=== PATIENT | male | born 1995 | race Caucasian/White ===

== ENCOUNTER 2023-10-26 19:07 | Emergency (ER) | payer OTHER, SELFPAY ==
[2023-10-26 19:09] VITALS: BP 143/72; PULSE 72; RESP 15; TEMP 36.4; O2SAT 99; BMI 26.6
--- NOTE | 2023-10-26 19:35 | EKG12_ITS ---
Test Reason : CP Blood Pressure : / mmHG Vent. Rate : 061 BPM Atrial Rate : 061 BPM P-R Int : 114 ms QRS Dur : 146 ms QT Int : 442 ms P-R-T Axes : 043 -31 078 degrees QTc Int : 444 ms Normal sinus rhythm Ventricular pre-excitation, WPW pattern type A Abnormal ECG Confirmed by Mathew So ([id number]), copy editor GEORGIA HARRIS ([id number]) on 10/28/2023 8:19:24 AM Referred By: RICHARD Confirmed By:Mathew So
--- NOTE | 2023-10-26 19:50 | EDS_ITS ---
HPI History of Present Illness Chief Complaint: Chest Pain Informant: patient and spouse/S.O. Narrative Narrative: 28-year-old male presenting to the emergency room with a chief complaint of palpitations and chest pain. Patient has intermittently had episodes where his heart feels like it is racing. Would last several minutes and then resolved. States he has not had any syncope. Today he experienced some chest pain she describes as a pressure going into his left arm. Resolved within an hour. He did not feel palpitations with that. He states he takes Lamictal but no other medications or supplements. PFSH PFSH Home Medications lamotrigine .ROUTE 10/26/23 [History Last Taken Unknown] Allergy/AdvReac Type Severity Reaction Status Date / Time No Known Allergies Allergy Verified 10/26/23 19:07 Social History Smoking Status: Unknown if ever smoked ROS ROS ED Constitutional Constitutional ED: Denies chills, fever(s) or weight loss Eyes Eyes: Denies change in vision or diplopia ENT ENT ED: Denies ear pain, rhinorrhea or sore throat Cardiovascular Cardiovascular: Reports chest pain, palpitations and racing heartbeat; Denies orthopnea Respiratory/Chest Respiratory/Chest: Denies cough, dyspnea or orthopnea Gastrointestinal Gastrointestinal: Denies abdominal pain, diarrhea, nausea or vomiting Genitourinary Genitourinary ED: Denies dysuria, hematuria or urinary frequency Musculoskeletal Musculoskeletal: Denies arthralgias or myalgias Integumentary Denies abscess or rash Neurologic Neurologic: Denies headache(s) or weakness Psychiatric Psychiatric: Denies anxiety, depression, suicidal ideation or suicidal thoughts Endocrine Endocrinology: Denies polydipsia, polyphagia or polyuria Allergic/Immunologic Allergic/Immunologic ED: Denies mouth swelling, tongue swelling or urticaria EXAM Physical Exam Const Vital Signs: 10/26/23 19:09 10/26/23 20:06 Temperature 97.6 F L Temperature Source Temporal Pulse Rate 72 69 Respiratory Rate 15 18 Blood Pressure 143/72 H 135/71 H Blood Pressure Mean 95 92 Pulse Ox 99 99 Oxygen Delivery Method Room Air Room Air Positive well nourished and well developed General Appearance ED: well developed HEENT Reports normocephalic, head/scalp atraumatic and moist mucous membranes Eyes PERRL and EOMs intact bilaterally Neck no lymphadenopathy, supple and no JVD Resp normal respiratory effort and clear to auscultation bilaterally Cardio regular rate, regular rhythm and no murmurs GI normal to inspection, nondistended, normoactive bowel sounds and non-tender Palpation: soft Back/Spine no CVA tenderness and normal ROM Extremity normal to inspection General Extremety ED: Negative for edema General Extremity: Negative for edema Neuro oriented x3 and CN's II-XII intact bilaterally Sensorium / Orientation: alert Motor Exam: strength 5/5 throughout Psych mental status grossly normal Mood & Affect: Negative for depressed or tearful Skin no rashes or lesions noted and no wounds MDM MDM MDM Narrative Medical decision making narrative: Differential includes ACS pneumothorax dysrhythmias aortic complications pulmonary embolism. CBC shows a hemoglobin of 12.2 with an MCV of 85.1. Platelet count of 270 white count 6.9. Troponin is normal magnesium normal at 2 potassium 3.9 sodium 143. Glucose 114. My independent interpretation of the chest x-ray is normal mediastinal silhouette. At this point I am not seeing evidence of ACS. He has a normal troponin. 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 I doubt that this is pulmonary embolism or aortic or ACS. I spoke with cardiology and we will have him call the office tomorrow morning. He is aware that he will need to go want to see electrophysiology. History & Record Review Discussion w/independent historian: Patient and Significant other Lab Data Attestation: I reviewed the patient's lab results. Labs: Laboratory Results - last 24 hr 10/26/23 19:45 WBC 6.9 RBC 4.35 L Hgb 12.2 L Hct 37.0 L MCV 85.1 MCH 28.0 MCHC 33.0 RDW Std Deviation 41.6 RDW Coeff of Kishan 13.2 Plt Count 270 MPV 9.9 Immature Gran % (Auto) 0.300 Neut % (Auto) 62.3 Lymph % (Auto) 26.2 [place] % (Auto) 9.3 Eos % (Auto) 1.2 Baso % (Auto) 0.7 Absolute Neuts (auto) 4.3 Absolute Lymphs (auto) 1.81 Nucleated RBC % 0 Sodium 143 Potassium 3.9 Chloride 108 H Carbon Dioxide 27.0 Anion Gap 8 BUN 16 Creatinine 0.99 Estim Creat Clear Calc 109.39 Est GFR (MDRD) Af Amer 118 Est GFR (MDRD) Non-Af 97 BUN/Creatinine Ratio 16.2 Glucose 118 H Calcium 9.4 Magnesium 2.0 Troponin I High Sens 4 Radiography Diagnostic Testing: Clinical Impression(s) from Imaging Studies Chest X-Ray 10/26/23 20:10 IMPRESSION: No radiographic evidence of acute cardiopulmonary disease. Electronically Signed: Jg Briceño MD at 20:20 EDT , EKG Initial EKG: Attestation: I personally reviewed and interpreted this EKG as follows: Comments: Normal sinus rhythm with a ventricular rate of 61 bpm. There is concern for shortened KS interval and delta wave consistent with WPW. Differential Diagnosis Chest pain/SOB: pulmonary embolism, ACS, pneumothorax, pneumonia and aortic dissection Management Discussion w/another healthcare provider: Gear Shaper Set Up Operator (Cardiology (Dr. So)) Discharge Plan Triage Chief Complaint: Chest Pain ED Provider: Ricci Lujan Dx/Rx/DC Orders Clinical Impression: WPW (Qsfek-Hmdeinuee-Rmphk syndrome), Chest pain Instructions: ED Palpitations Prescriptions: No Action lamotrigine [Lamictal] .ROUTE Primary Care Provider: Chandana Puri Referrals: Mathew So MD [Med Staff - Active Staff] - 1 Day Chandana Puri DO [Primary Care Provider] - Activity Restrictions/Additional Instructions: You need to call the office of Dr. Mathew So from cardiology tomorrow.
[2023-10-26 19:56] LABS: Absolute Lymphocyte Count 1.81 X10^3/uL (0.83-4.51); Absolute Neutrophil Count 4.3 X10^3/uL (2.0-7.7); Basophil# 0.05 X10^3/uL; Basophil% 0.7 % (0-1); Eosinophil# 0.08 X10^3/uL; Eosinophils% 1.2 % (0-5); Hemoglobin 12.2 g/dL (13.0-16.5); Lymphocyte # 1.81 X10^3/ul (0.83-4.51); Lymphocyte % 26.2 % (19-41); Mean Corpuscular Volume 85.1 fL (80-94); Mean Platelet Vol. 9.9 fl (6.2-12.0); Monocyte# 0.64 X10^3/uL; Monocyte% 9.3 % (0-10); NRBC Flagged by Analyzer 0 % (0-5); Neutrophil # 4.31 X10^3/uL (2.7-7.7); Neutrophil % 62.3 % (47-70); Platelet Count 270 K/mm3 (150-450); RBC Distribution Width CV 13.2 % (11.6-14.6); RBC Distribution Width SD 41.6 fl (35.1-43.9); Red Blood Count 4.35 M/mm3 (4.6-6.2); White Blood Count 6.9 K/mm3 (4.4-11.0)
--- OUTSIDE RECORDS SUMMARY | 2023-10-26 19:58 | XMS RPT_ITS | CCD ---
Author Name Unknown Address [address] [place] [address] Organization [facility] Care Team Providers Care Vice President Residential [employer] Name Role Phone NORA DEL CID Unavailable Unavailable NORA DEL CID Unavailable Unavailable NORA DEL CID Unavailable Unavailable LAURA ALEXANDRA Attending Unavailable IRIS DIMAS Primary Care Unavailable Problems Problem Classification Problem Date Documented Da te Episodic/Chronic Malaise and fatigue (3 sources) Other fatigue; Translations: [Other fatigue] Onset: 01-06-2018 Episodic Results Test Name Value Interpretation Reference Range Facil ity Encounters Encounter Date Encounter Type Care Provider Facility Start: 10-16-2018 End: 10-16-2018 Emergency department patient visit LAURA ALEXANDRA Facility:B Start: 01-06-2018 End: 08-17-2018 Patient encounter procedure NORA DEL CID [facility] Payers Date Payer Category Payer Self-pay 1997 Unknown [id number] Summary Purpose Family History No Family History Records FoundNo Family History Records Found Advance Directives No Advanced Directives Records FoundNo Advanced Directives Records Found Additional Source Comments (unrecognized sect ion and content) No Status Records FoundNo Status Records Found INFORMATION SOURCE (unrecogn ized section and content) DATE CREATED AUTHOR AUTHOR'S ORGANIZ ATION 10/19/2018 [facility] ([place]) FOR RECORDS PERTAINING TO PATIENTS WHO ARE OR HAVE BEEN ENROLLED IN A CHEMICAL DEPENDENCY/SUBSTANCEABUSE PROGRAM, SOME INFORMATION MAY BE OMITTED. This clinical summary was aggregated from multiple sources. Caution should be exercised in using it in the provision of clinical care. This summary normalizes information from multiple sources, and as a consequence, information in this document may materially change the coding, format and clinical context of patient data. In addition, data may be omitted in some cases. CLINICAL DECISIONS SHOULD BE BASED ON THE PRIMARY CLINICAL RECORDS. [employer] [facility]. provides no warranty or guarantee of the accuracy or completeness of information in this document.
[2023-10-26 20:06] VITALS: BP 135/71; PULSE 69; RESP 18; O2SAT 99
--- NOTE | 2023-10-26 20:10 | RAD_ITS ---
EXAM: XR CHEST, 1 VIEW CLINICAL INDICATION: CHEST PAIN TECHNIQUE: Frontal view of the chest. COMPARISON: No relevant prior studies available. FINDINGS: LUNGS AND PLEURAL SPACES: Unremarkable. No consolidation or edema. No pneumothorax. No effusion. HEART: Unremarkable. Cardiac silhouette not enlarged. MEDIASTINUM: Central airways and mediastinal contour are unremarkable. BONES/JOINTS: Unremarkable. No acute fracture. SOFT TISSUES: Unremarkable. RAD/Chest 1 View (Portable) IMPRESSION: No radiographic evidence of acute cardiopulmonary disease. Electronically Signed: Jg Briceño MD at 20:20 EDT ,
[2023-10-26 20:13] LABS: Anion Gap 8 (5-15); BUN 16 mg/dL (7-18); BUN/Creat Ratio 16.2 RATIO (10-20); Calcium,Total 9.4 mg/dL (8.5-10.1); Chloride 108 mmol/L (98-107); Creatinine, Serum 0.99 mg/dL (0.70-1.30); EST Glomerular Filtration Rate 97 mL/min (>60); Est Glom Filt Rate - Afr Amer 118 mL/min (>60); Estimated Creatinine Clearance 109.39 ml/min; Glucose 118 mg/dL (74-106); Potassium 3.9 mmol/L (3.5-5.1); Sodium Level 143 mmol/L (136-145); Troponin-I HS 4 pg/mL (3.0-78.0)
[2023-10-26 20:42] VITALS: BP 135/82; PULSE 78; RESP 18; TEMP 36.4; O2SAT 99
[2023-10-30 16:10] LABS: Lamotrigine (Lamictal) Level < 1.0 ug/mL (2.0-20.0)
== END 2023-10-26 20:48 | disposition home or self-care (01) ==
LOC: ED 19:56
PROVIDERS: Emergency Provider Emergency Medicine; PCP Family Medicine; Visit Provider Emergency Medicine
DX: R07.9 Chest pain, unspecified (principal); I45.6 Pre-excitation syndrome
CPT/HCPCS: 71045; 80048; 82542; 83735; 84484; 85025; 93005; 99283; A4216

== ENCOUNTER → 2023-12-05 | Outpatient (CLI) | payer SELFPAY, OTHER ==
--- NOTE | 2023-12-05 14:04 | ECHOD_ITS ---
Reason For Study: Arrhythmia Procedure This was a 2D Doppler, Color Flow transthoracic echocardiogram. Exam performed in department. Left Ventricle Normal LV size. Left ventricular systolic function is normal. The estimated ejection fraction is 60 %. Normal diastology for age. No regional wall motion abnormalities noted. Right Ventricle Normal RV size. Normal systolic function. Atria Normal left atrium. Normal right atrium. Mitral Valve Normal mitral valve. Tricuspid Valve Normal tricuspid valve. Mild tricuspid valve insufficiency. Pulmonary artery systolic pressure is 20 mmHg. Aortic Valve Normal aortic valve. Trisinus/trileaflet aortic valve. Pulmonic Valve Normal pulmonic valve. Great Vessels Normal aortic root. The pulmonary artery is normal size. Inferior vena cava collapse with respiration. Pericardium/Pleural No pericardial effusion. MMode/2D Measurements & Calculations LVIDd: 5.3 cm IVSd: 0.92 cm Ao root diam: 2.7 cm LVIDs: 3.8 cm LVPWd: 0.81 cm LA dimension: 3.6 cm RVDd: 4.4 cm FS: 29.3 % LAV(MOD-bp): 60.0 ml LVAd ap4: 37.4 cm2 SV(MOD-sp4): 83.2 ml LAV(MOD-bp) Indexed: 31.0 ml/m2 LVLd ap4: 8.3 cm LAV(MOD-sp2): 54.1 ml EDV(MOD-sp4): 139.2 ml LAV(MOD-sp4): 61.5 ml EDV(sp4-el): 143.7 ml LVAs ap4: 21.0 cm2 LVLs ap4: 6.8 cm ESV(MOD-sp4): 56.0 ml ESV(sp4-el): 55.4 ml EF(MOD-sp4): 59.8 % EF(sp4-el): 61.4 % SV(sp4-el): 88.3 ml LA A4 area: 20.3 cm2 RA A4 area: 14.7 cm2 TAPSE: 1.9 cm Time Measurements MV dec time: 0.15 sec Doppler Measurements & Calculations MV E max suhail: 97.1 cm/sec Lat Peak E' Suhail: 21.2 cm/sec Med Peak E' Suhail: 16.7 cm/sec MV A max suhail: 42.8 cm/sec E/E' lat: 4.6 E/E' med: 5.8 MV E/A: 2.3 MV V2 max: 143.3 cm/sec MV P1/2t max suhail: 143.7 cm/sec Ao V2 max: 154.1 cm/sec MV max P.2 mmHg MV P1/2t: 65.4 msec Ao max P.5 mmHg MV V2 mean: 51.1 cm/sec MV dec slope: 643.2 cm/sec2 Ao V2 mean: 109.7 cm/sec MV mean P.5 mmHg Ao mean P.5 mmHg MV V2 VTI: 42.5 cm MVA(P1/2t): 3.4 cm2 Ao V2 VTI: 33.2 cm AV (velocity ratio): 0.85 LV V1 max: 135.0 cm/sec PA V2 max: 123.4 cm/sec PI dec slope: 63.7 cm/sec2 LV V1 max P.3 mmHg PA V2 mean: 86.2 cm/sec LV V1 mean P.0 mmHg LV V1 mean: 92.6 cm/sec LV V1 VTI: 28.3 cm TR max suhail: 199.9 cm/sec TR max P.0 mmHg ECHO/Echo Complete Interpretation Summary Normal LV size. Left ventricular systolic function is normal. The estimated ejection fraction is 60 %. Mild tricuspid valve insufficiency. Normal diastology for age. Ordering Physician: Mathew So Referring Physician: Mathew So Performed By: Zhang Cornell RCS
== END | disposition home or self-care (01) ==
LOC: CVS 14:03
PROVIDERS: PCP Family Medicine; Referring Provider Internal Medicine Cardiovascular Disease; Visit Provider Internal Medicine Cardiovascular Disease
DX: I45.6 Pre-excitation syndrome (principal)
CPT/HCPCS: 93306